=== PATIENT | male | born 1970 | race Caucasian/White ===

== ENCOUNTER 2016-09-08 11:19 | Emergency (ER) | payer SELFPAY ==
[2016-09-08 11:33] VITALS: TEMP 97.8; BMI 19.4
[2016-09-08] MEDS ORDERED: IBUPROFEN 800 MG TAB PO ONE (11:44)
--- NOTE | 2016-09-08 12:18 | EDPRACDOC ---
- General Information Chief Complaint: Flu-Like Symptoms Stated Complaint: FLU LIKE SYMPTOMS FEELS LIKE HE IS DYING Time Seen by Provider: 09/08/16 11:34 Information Source: Patient Home Medications: Home Medications Citalopram (anti-depressant) [Celexa] 40 mg PO DAILY #14 tablet 03/23/15 Trazodone HCl 100 mg PO QHS #14 tab 03/23/15 Cyclobenzaprine HCl [Flexeril] 10 mg PO TID #21 tab 09/08/16 Ibuprofen 600 mg PO TID #20 tablet 09/08/16 Allergies/Adverse Reactions: Allergies Allergy/AdvReac Type Severity Reaction Status Date / Time No Known Allergies Allergy Verified 09/08/16 11:29 - History of Present Illness Onset: 2 days HPI: PT PRESENTS TODAY WITH PRODUCTIVE COUGH, CHILLS AND GENERALIZED MYALGIA. SMOKER. NO OTHER PMH/MEDS. DENIES [place], FEVER, CP, SHOB, ABD PAIN, N/V/D. NO APPARENT DISTRESS. Shortness of Breath: None Relevant History of: Reports: None Cough: Reports: Productive, White Rhinorrhea: Reports: None Fever Severity/Quality: Reports: no fever Ear Symptoms: Reports: None Associated Signs & Symptoms: Reports: Cough Oral Intake: Normal Urinary Output: Normal ED Past Medical History - History Reviewed Yes Nurses notes reviewed and agree except as marked - Patient Medical History Psychological History: Reports: Depression. Denies: Substance Use Disorder - Social Medical History Smoking Status: Heavy tobacco smoker (5 or more cigarettes/day or daily pipe/ cigar) Social History: Denies: Substance Use Disorder EDM Review of Systems - Review of Systems ROS Negative Except as Marked: Yes All systems reviewed and were negative except as marked Constitutional: Chills, Fatigue Eyes: No Symptoms Reported Ears: No Symptoms Reported Throat: No Symptoms Reported Nose: No Symptoms Reported Respiratory: Cough Cardiovascular: No Symptoms Reported Gastrointestinal: No Symptoms Reported Genitourinary: No Symptoms Reported Neurological: No Symptoms Reported Musculoskeletal: Other (GENERALIZED ACHES) Integumentary: No Symptoms Reported - Physical Exam Constitutional: Alert (Awake), No apparent distress Oriented to: Time, Person, Place Last recorded Vital Signs: Last Vital Signs Temp 97.8 F 09/08/16 11:30 Pulse 106 09/08/16 11:30 Resp 20 09/08/16 11:30 BP 131/74 09/08/16 11:30 Pulse Ox 100 09/08/16 11:30 Oxygen Pulse Oxygen Saturation 100 O2 Device Room Air Oxygen Flow Rate Fraction of Inspired Oxygen ( FIO2) - HEENT Head: Normal Eye Exam: Normal Oropharynx: Normal Tympanic Membrane: Normal ENT EAC: Normal Nose: No Symptoms Reported Neck: Normal, Denies Pain, Midline - Respiratory/Cardiovascular Respiratory: Normal - CTA Cardiovascular: Normal - GI Palpation: Normal Tenderness: Non tender - Musculoskeletal Back: Normal Extremities: Normal - Integumentary Skin: Normal Lymphatics: Normal - Neurologic Cerebellar: Normal Mood Description: Normal Thought: Coherent Perception: Normal - Results Microbiology 09/08/16 11:46 Influenza Type A Antigen Screen - Final N/P - Naso/Pharyngeal NEGATIVE Please note: A NEGATIVE result does not exclude an influenza virus infection. It is a presumptive result and, if required, confirmation should be done using either a virus culture or an FDA-cleared influenza A&B molecular assay. ("NORMAL" value = "NEGATIVE".) Influenza Type B Antigen Screen - Final NEGATIVE Please note: A NEGATIVE result does not exclude an influenza virus infection. It is a presumptive result and, if required, confirmation should be done using either a virus culture or an FDA-cleared influenza A&B molecular assay. ("NORMAL" value = "NEGATIVE".) Decision Time to Discharge: 12:19 - Departure Disposition: Home Condition: Good Final Diagnosis: Viral syndrome Instructions: Viral Syndrome (ED) Education/Counseling Given To: Patient Education/Counseling Given Regarding: Diagnosis, Treatment, Follow Up Referrals: None,No Provider [Primary Care Provider] - One Week NIKO YANG [NonStaff] - One Week Prescriptions: New Cyclobenzaprine HCl [Flexeril] 10 mg PO TID #21 tab Ibuprofen 600 mg PO TID #20 tablet No Action Trazodone HCl 100 mg PO QHS #14 tab Citalopram (anti-depressant) [Celexa] 40 mg PO DAILY #14 tablet Additional Instructions: REST AND PLENTY OF FLUIDS. HEATING PADS TO ACHY MUSCLES. FOLLOW UP WITH PCP IN 2-3 DAYS.
--- NOTE | 2016-09-08 12:31 | DIRPT ---
CLINICAL DATA: Productive cough. EXAM: CHEST 2 VIEW COMPARISON: March 15, 2015. FINDINGS: The heart size and mediastinal contours are within normal limits. Both lungs are clear. No pneumothorax or pleural effusion is noted. The visualized skeletal structures are unremarkable. IMPRESSION: No active cardiopulmonary disease. Electronically Signed By: Alejandro Mclean Jr, M.D. On: 09/08/2016 12:28
[2016-09-08 12:47] VITALS: BP 126/68; PULSE 98
== END 2016-09-08 12:46 | disposition home or self-care (01) ==
LOC: EDMC 11:19
DX: B34.9 Viral infection, unspecified (principal)
CPT/HCPCS: 71020; 87804; 99282; J3490